=== PATIENT | male | born 1980 | race Caucasian/White ===

== ENCOUNTER 2019-03-13 20:21 | Emergency (ER) | payer MEDICAID ==
[~2019-03-13] VITALS: Ht 167.6 cm; Wt 81.1 kg
[~2019-03-13 20:21] MED LIST: ALBU8.5H8 INH; AZIT250T PO; HYDR-4011 PO; IBUP-1542 PO; OFLO5DRO46 RIGHT EYE
[2019-03-13 20:30] VITALS: PULSE 99; RESP 16; Ht 167.6 cm; Wt 81.1 kg
[2019-03-13] MEDS ORDERED: IBUPROFEN 200 MG TAB PO ONE (22:00)
[2019-03-13] MEDS ORDERED: ACETAMINOPHEN 325 MG TAB PO ONE (22:00)
== END 2019-03-13 22:18 | disposition home or self-care (01) ==
LOC: FTE 20:21
DX: J20.9 Acute bronchitis, unspecified (principal)
CPT/HCPCS: Z7502; Z7610; 99283

== ENCOUNTER 2019-03-23 21:26 | Emergency (ER) | payer MEDICAID ==
[~2019-03-23] VITALS: Ht 172.7 cm; Wt 81.7 kg
[2019-03-23 21:28] VITALS: Ht 172.7 cm; Wt 81.7 kg
[2019-03-23] MEDS ORDERED: TETRACAINE 0.5% 4 ML OPH BOTH EYES ONE (23:30)
[2019-03-23] MEDS ORDERED: FLUORESCEIN STRIP BOTH EYES ONE (23:30)
[2019-03-24 01:20] VITALS: BP 120/70; PULSE 84; RESP 16
== END 2019-03-24 01:20 | disposition home or self-care (01) ==
LOC: FTE 21:26
DX: T15.01XA Foreign body in cornea, right eye, initial encounter (principal); F17.210 Nicotine dependence, cigarettes, uncomplicated; X58.XXXA Exposure to other specified factors, initial encounter; Y92.9 Unspecified place or not applicable
CPT/HCPCS: Z7502; Z7610; 99283